=== PATIENT | male | born 2000 | race African-American/Black ===

== ENCOUNTER 2024-01-04 07:13 | Emergency (ER) | payer SELFPAY ==
[2024-01-04] MEDS: predniSONE 10 MG Tab PO ONE (07:46)
[2024-01-04] MEDS: Albuterol/Ipratropium 3.0-0.5 MG/3 ML Neb Soln NEB ONE (08:00)
== END 2024-01-04 08:58 | disposition home or self-care (01) ==
LOC: MW.ED 07:13
DX: R06.2 Wheezing (principal); Z79.51 Long term (current) use of inhaled steroids; Z79.899 Other long term (current) drug therapy
CPT/HCPCS: 71046; 94640; 99285; A9270; 99283; J7620-GY